=== PATIENT | male | born 1995 | race Caucasian/White ===

== ENCOUNTER 2016-11-18 13:01 | Emergency (ER) | payer OTHER ==
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
[2016-11-18 13:16] VITALS: BP 157/92; PULSE 107; RESP 18; TEMP 98.1; O2SAT 95
[2016-11-18] MEDS ORDERED: KETOROLAC 30 MG/1 ML SDV IM ONE (13:23)
== END 2016-11-18 13:56 | disposition home or self-care (01) ==
PROC: 0RSJXZZ Reposition Right Shoulder Joint, External Approach (ICD-10-PCS; principal; 2016-11-18)
DX: S43.004A Unspecified dislocation of right shoulder joint, initial encounter (principal); W23.1XXA Caught, crushed, jammed, or pinched between stationary objects, initial encounter
CPT/HCPCS: J1885